=== PATIENT | female | born 1955 | race Caucasian/White ===

== ENCOUNTER 2020-03-01 08:35 | Inpatient (IN) | payer OTHER, MEDICAID ==
[~2020-03-01] VITALS: Ht 165.1 cm; Wt 56.4 kg
[2020-03-01] MEDS ORDERED: SODIUM CHLORIDE 0.9% 1,000 ML IV ONE (08:41)
[2020-03-01] MEDS ORDERED: SODIUM CHLORIDE 0.9% 1,000 ML IVB ONE (08:41)
[2020-03-01] MEDS ORDERED: dilTIAZem 25 MG/5 ML VIAL IV ONE ×2 (08:42→08:45)
[2020-03-01] MEDS ORDERED: ASPirin 81 mg TAB PO ONE (08:45)
[2020-03-01] MEDS ORDERED: LORazepam 2MG/ML-1ML VIAL IV ONE (08:45)
[2020-03-01 09:10] LABS: Basophils # (auto) 0 10 ^3/uL (0-0.2); Eosinophils # (auto) 0.2 10 ^3/uL (0-0.8); Lymphocytes # (auto) 2.8 10 ^3/uL (0.4-5.4); Mean Corpuscular Volume 100.2 fL (80.0-100.0); Monocytes # (auto) 0.8 10 ^3/uL (0-1.3)
[2020-03-01 09:12] LABS: Basophils % (auto) 0.5 % (0.0-2.0); Eosinophils % (auto) 2.5 % (0.0-7.0); Hematocrit 46.4 % (36.0-46.0); Lymphocytes % (auto) 33.2 % (10.0-50.0); Mean Corpuscular Hemoglobin 34.5 pg (28.0-32.0); Mean Corpuscular Hgb Conc. 34.4 g/dL (32.0-36.0); Neutrophils # (auto) 4.7 10 ^3/uL (1.6-8.6); Neutrophils % (auto) 54.8 % (37.0-80.0); Platelet Count (auto) 361 10^3/uL (140-450); Red Blood Cells 4.63 10^6/uL (4.0-5.20); Red Cell Distribution Width 12.7 % (11.8-14.3); White Blood Cell 8.5 10^3/uL (4.4-10.8)
[2020-03-01 09:15] LABS: INR 1.01 (0.9-1.15); Partial Thromboplastin Time 26.1 sec (23.64-32.05)
[2020-03-01 09:20] LABS: Albumin 3.5 g/dL (3.4-5.0); Anion Gap 7 (5-15); Blood Urea Nitrogen 12 mg/dL (7-18); Calcium 8.6 mg/dL (8.5-10.1); Carbon Dioxide 24 mmol/L (21-32); Chloride 112 mmol/L (98-107); Glucose 99 mg/dL (74-106); Potassium 3.5 mmol/L (3.5-5.1); Sodium 143 mmol/L (136-145)
[2020-03-01 09:26] LABS: Alanine Aminotransferase 31 U/L (13-56); Alkaline Phosphatase 61 U/L (45-117); Aspartate Aminotransferase 50 U/L (15-37); BUN/Creatinine Ratio 13.2; Bilirubin, Total 0.6 mg/dL (0.2-1.0); GFR African American 79 mL/min; GFR Non-African American 66 mL/min; Total Protein 6.8 g/dL (6.4-8.2)
[2020-03-01 10:55] LABS: Urine Bacteria NONE SEEN /hpf (None Seen); Urine Blood Negative /uL (Negative); Urine Hyaline Cast FEW /lpf (0 - 2); Urine Specific Gravity 1.005 (1.001-1.035); Urine WBC 1 /hpf (0 - 5)
[2020-03-01 11:05] LABS: Amphetamine Screen, Urine NEGATIVE (NEGATIVE); Barbiturate Scree,Urine NEGATIVE (NEGATIVE); Benzodiazephine Screen, Urine NEGATIVE (NEGATIVE); Cannabinoid Screen, Urine NEGATIVE (NEGATIVE); Cocaine Screen, Urine NEGATIVE (NEGATIVE); Opiate Scree,Urine NEGATIVE (NEGATIVE); Phencyclidine Screen, Urine NEGATIVE (NEGATIVE)
[2020-03-01] MEDS ORDERED: MORPHINE SULF INJ 2 MG/ML SYRINGE 1ML IV PRN (13:15)
[2020-03-01] MEDS ORDERED: NITROGLYCERIN 0.4 MG SL TAB SL PRN ×2 (13:15→15:45)
--- NOTE | 2020-03-01 14:30 | NUR ---
Telemetry admit from ER SIAVANDREWS admitted to Telemetry unit after SBAR received. Patient oriented to Sarah James, primary RN, unit, room, bed, and unit policies regarding patient care and visiting hours. Patient now on continuous telemetry monitoring, tele box # 55 and telemetry reading on arrival to unit is Sinus rhythm HR 79. Pt denies need for bedside oxygen, VSS. Patient weighed by bedscale and encouraged to call if they need something. All questions and concerns addressed, patient verbalized understanding. No s/s of distress or sob noted. Patient denies any cp. Call light within reach and patient instructed to call for assistance prn.
[2020-03-01] MEDS ORDERED: ACETAMINOPHEN 325 MG TAB PO PRN (15:45)
[2020-03-01] MEDS ORDERED: METOPROLOL TARTRATE 25 MG TAB PO ONE (15:45)
[2020-03-01] MEDS ORDERED: cloNIDine HCL 0.1 MG TAB PO PRN (15:45)
[2020-03-01] MEDS ORDERED: ALPRAZolam 0.25 MG TAB PO PRN (15:45)
[2020-03-01] MEDS ORDERED: ONDANSETRON HCL 4 MG/2 ML VIAL IV PRN (15:45)
[2020-03-01] MEDS ORDERED: SIMV-13 PO (15:57)
[2020-03-01] MEDS ORDERED: LEVO100T8 PO (15:57)
[2020-03-01] MEDS ORDERED: FENO160T8 PO (15:57)
[2020-03-01 17:12] VITALS: BP 140/68
--- NOTE | 2020-03-01 17:21 | NUR ---
Cardio at bedside MD Roca at bedside, aware of patient's status. MD requesting EKG of patient when in SVT, per [facility] nurse he states they did not get one only a rhythm strip when he was in the 200's for a few secs but no strip in chart. New orders received for metoprolol and cont care. Awaiting echo at this time. Will continue care
--- NOTE | 2020-03-01 19:10 | NUR ---
Patient care endorsed endorsed care to Dimitris le. Patient laying comfortably in bed no acute distress or sob. Denies CP pain. Call light within reach.
--- NOTE | 2020-03-01 19:15 | NUR ---
opening note pt A&Ox4. respirations even and nonlabored on room air. pt is ambulatory w/o assistance. bed in low locked position, call light within reach.
--- NOTE | 2020-03-01 19:59 | NUR ---
pain pt c/o of a headache, rating of a 3/10. pt will be medicated appropriately.
[2020-03-01 20:00] VITALS: BP 145/71
[2020-03-01 22:00] VITALS: BP 145/71
[2020-03-01] MEDS ORDERED: METOPROLOL TARTRATE 25 MG TAB PO SCH (22:00)
[2020-03-01] MEDS: METOPROLOL TARTRATE 25 MG TAB PO SCH (22:02)
--- NOTE | 2020-03-01 23:50 | NUR ---
pt resting in left lateral position with eyes closed. no s/s of pain or discomfort at this time. respirations are even and nonlabored on room air. will continue to monitor.
--- NOTE | 2020-03-02 01:50 | NUR ---
rounds pt resting in left lateral position. no s/s of pain or discomfort. respirations even nonlabored on room air. will continue to monitor.
[2020-03-02 05:00] VITALS: BP 142/70
[2020-03-02 06:02] LABS: BUN/Creatinine Ratio 22.1; Magnesium 1.9 mg/dL (1.6-2.6); Potassium 3.8 mmol/L (3.5-5.1)
--- NOTE | 2020-03-02 07:25 | NUR ---
closing note pt resting in right lateral position. respirations are even and nonlabored on room air. no s/s of pain or discomfort. bed in low locked position, call light within reach.
[2020-03-02 08:00] VITALS: BP 158/79
[2020-03-02] MEDS: METOPROLOL TARTRATE 25 MG TAB PO SCH (09:34)
[2020-03-02] MEDS ORDERED: ASPirin 81 mg TAB PO SCH (10:00)
--- NOTE | 2020-03-02 10:35 | NUR ---
DR CARPIO ON UNIT
[2020-03-02 11:10] VITALS: BP_SYST 137; BP_SYST 146; BP_DIAS 74; BP_DIAS 88
[2020-03-02 12:00] VITALS: BP 137/88
--- NOTE | 2020-03-02 13:25 | NUR ---
Discharge instructions given as ordered. Encourage to follow up with PMD as instructed, tomorrow, March 03 @ 11:15 (tele appt) Also provided patient will phone number and address to schedule follow up appt for cardiology in 2-4 weeks. All questions and concerns addressed. Patient verbalized understanding. Medication reconciliation form completed and copy given to patient. No home medications held in Pharmacy, and no needed vaccines given, as patient declined. Both IVs removed with catheter intact and pressure dressing applied. Telemetry unit returned to ICU. Patient taken to vehicle via wheelchair with all personal belongings, accompanied by staff member. No distress noted at time of departure.
== END 2020-03-02 13:25 | disposition home or self-care (01) | DRG 310 ==
LOC: EDBD 08:35 → ER 08:35 → TELE 08:36 → TELE-WESTW 14:29
PROVIDERS: ADMIT Internal Medicine Geriatric Medicine; ATTEND Internal Medicine Geriatric Medicine
DX: I47.1 Supraventricular tachycardia (principal); E03.9 Hypothyroidism, unspecified; D75.89 Other specified diseases of blood and blood-forming organs; E78.5 Hyperlipidemia, unspecified; F17.210 Nicotine dependence, cigarettes, uncomplicated; I10 Essential (primary) hypertension; Z79.899 Other long term (current) drug therapy; Z90.710 Acquired absence of both cervix and uterus
CPT/HCPCS: 36415; 71046; 80048; 80053; 80307; 81001; 83735; 84443; 84484; 85025; 85379; 85610; 85730; 93306; G0378

== ENCOUNTER 2020-03-29 12:15 | Emergency (ER) | payer OTHER, MEDICAID ==
[~2020-03-29] VITALS: Ht 167.6 cm; Wt 68.0 kg
[~2020-03-29 12:15] MED LIST: FENO160T8 PO; LEVO100T8 PO; SIMV-13 PO
[2020-03-29 12:59] LABS: Basophils # (auto) 0.1 10 ^3/uL (0-0.2); Basophils % (auto) 0.8 % (0.0-2.0); Eosinophils # (auto) 0.2 10 ^3/uL (0-0.8); Hemoglobin 15.6 g/dL (12.2-16.2); Lymphocytes # (auto) 1.7 10 ^3/uL (0.4-5.4); Mean Corpuscular Hgb Conc. 34.6 g/dL (32.0-36.0); Monocytes # (auto) 0.6 10 ^3/uL (0-1.3); Red Blood Cells 4.57 10^6/uL (4.0-5.20)
[2020-03-29 13:01] LABS: Eosinophils % (auto) 2.7 % (0.0-7.0); Hematocrit 45.2 % (36.0-46.0); Mean Corpuscular Hemoglobin 34.2 pg (28.0-32.0); Mean Corpuscular Volume 98.9 fL (80.0-100.0); Monocytes % (auto) 7.7 % (0.0-12.0); Neutrophils # (auto) 5.5 10 ^3/uL (1.6-8.6); Neutrophils % (auto) 67.8 % (37.0-80.0); Nucleated Red Blood Cells % 0.1 %; Platelet Count (auto) 306 10^3/uL (140-450); White Blood Cell 8.2 10^3/uL (4.4-10.8)
[2020-03-29 13:12] LABS: Albumin 3.8 g/dL (3.4-5.0); Anion Gap 6 (5-15); Blood Urea Nitrogen 16 mg/dL (7-18); Calcium 8.7 mg/dL (8.5-10.1); Carbon Dioxide 25 mmol/L (21-32); Chloride 108 mmol/L (98-107); Glucose 83 mg/dL (74-106); Sodium 139 mmol/L (136-145)
[2020-03-29] MEDS ORDERED: ASPirin 81 mg TAB PO ONE (13:15)
[2020-03-29 13:18] LABS: Alanine Aminotransferase 25 U/L (13-56); Alkaline Phosphatase 62 U/L (45-117); Aspartate Aminotransferase 26 U/L (15-37); Bilirubin, Total 0.5 mg/dL (0.2-1.0); GFR African American 92 mL/min; GFR Non-African American 76 mL/min; Total Protein 7.1 g/dL (6.4-8.2)
[2020-03-29 14:01] LABS: INR 0.99 (0.9-1.15); Partial Thromboplastin Time 26.1 sec (23.64-32.05)
[2020-03-29] MEDS ORDERED: IOHEXOL 350 MG/ML 100ML IJ ONE (14:25)
[2020-03-29 14:42] LABS: Urine Bacteria FEW /hpf (None Seen); Urine Blood Negative /uL (Negative); Urine Specific Gravity 1.004 (1.001-1.035); Urine WBC 2 /hpf (0 - 5)
[2020-03-29 16:15] VITALS: BP 131/62
== END 2020-03-29 16:34 | disposition home or self-care (01) ==
LOC: EDSEX 12:15 → EDBD 12:15 → ER 12:15
DX: J43.9 Emphysema, unspecified (principal); F17.210 Nicotine dependence, cigarettes, uncomplicated; E78.5 Hyperlipidemia, unspecified; I10 Essential (primary) hypertension; Z90.710 Acquired absence of both cervix and uterus
CPT/HCPCS: 36415; 71045; 71275; 80053; 81001; 83735; 83880; 84443; 84484; 85025; 85379; 85610; 85730; 93005; 99285; Q9967

== ENCOUNTER 2022-11-22 15:54 | Emergency (ER) | payer MEDICAID, OTHER ==
[~2022-11-22] VITALS: Ht 165.1 cm; Wt 55.0 kg
[2022-11-22 16:51] LABS: Basophils # (auto) 0 10 ^3/uL (0-0.2); Basophils % (auto) 0.6 % (0.0-2.0); Eosinophils # (auto) 0.1 10 ^3/uL (0-0.8); Eosinophils % (auto) 0.8 % (0.0-7.0); Hematocrit 41.1 % (36.0-46.0); Hemoglobin 13.9 g/dL (12.2-16.2); Lymphocytes # (auto) 1.6 10 ^3/uL (0.4-5.4); Lymphocytes % (auto) 23.2 % (10.0-50.0); Mean Corpuscular Hemoglobin 34.1 pg (28.0-32.0); Mean Corpuscular Hgb Conc. 33.8 g/dL (32.0-36.0); Mean Corpuscular Volume 101.2 fL (80.0-100.0); Monocytes # (auto) 0.6 10 ^3/uL (0-1.3); Monocytes % (auto) 8.5 % (0.0-12.0); Neutrophils # (auto) 4.7 10 ^3/uL (1.6-8.6); Neutrophils % (auto) 66.9 % (37.0-80.0); Red Blood Cells 4.06 10^6/uL (4.0-5.20); Red Cell Distribution Width 12.5 % (11.8-14.3); White Blood Cell 7.1 10^3/uL (4.4-10.8)
[2022-11-22 16:57] LABS: Urine Bacteria MANY /hpf (None Seen); Urine Blood Negative /uL (Negative); Urine Hyaline Cast FEW /lpf (0 - 2); Urine Specific Gravity 1.009 (1.001-1.035); Urine WBC 11 /hpf (0 - 5)
[2022-11-22 17:05] LABS: Albumin 3.5 g/dL (3.4-5.0); Calcium 9.3 mg/dL (8.5-10.1); Potassium 3.9 mmol/L (3.5-5.1)
[2022-11-22 17:08] LABS: BUN/Creatinine Ratio 15.1
[2022-11-22 17:11] LABS: Bilirubin, Total 0.5 mg/dL (0.2-1.0); Total Protein 6.2 g/dL (6.4-8.2)
[2022-11-22] MEDS ORDERED: LACTATED RINGER'S 2,000 ML IV ONE (19:15)
[2022-11-22] MEDS ORDERED: HYDROcodone-ACET 5/325MG TAB PO ONE (19:15)
[2022-11-22] MEDS ORDERED: TAMSULOSIN HYDROCHLORIDE 0.4 MG CAP PO ONE (19:15)
[2022-11-22] MEDS ORDERED: MAGNESIUM SULFATE 1GM/100ML 100 ML IV ONE (19:15)
[2022-11-22] MEDS ORDERED: CEPH-510 PO (20:47)
[2022-11-22 21:10] VITALS: BP 124/86
[2022-11-22] MEDS ORDERED: CEFP200T15 PO (21:10)
== END 2022-11-22 20:48 | disposition home or self-care (01) ==
LOC: ER 15:54
DX: N12 Tubulo-interstitial nephritis, not specified as acute or chronic (principal); N23 Unspecified renal colic; E78.5 Hyperlipidemia, unspecified; I10 Essential (primary) hypertension; Z90.710 Acquired absence of both cervix and uterus
CPT/HCPCS: 36415; 74176; 76705; 80053; 81001; 84484; 85025; 93005; 96360

== ENCOUNTER 2023-02-28 17:34 | Emergency (ER) | payer OTHER, BC ==
[~2023-02-28] VITALS: Ht 167.6 cm; Wt 59.0 kg
[~2023-02-28 17:34] MED LIST changes: +CEFP200T15 PO
[2023-02-28] MEDS ORDERED: ACETAMINOPHEN 325 MG TAB PO ONE (19:45)
[2023-02-28 22:24] VITALS: BP 154/79
== END 2023-02-28 22:25 | disposition home or self-care (01) ==
LOC: ER 17:34 → EDBD 17:34 → ER 22:25
DX: S20.214A Contusion of middle front wall of thorax, initial encounter (principal); F10.129 Alcohol abuse with intoxication, unspecified; J44.9 Chronic obstructive pulmonary disease, unspecified; E78.5 Hyperlipidemia, unspecified; I10 Essential (primary) hypertension; F17.210 Nicotine dependence, cigarettes, uncomplicated; Z79.899 Other long term (current) drug therapy; Z90.710 Acquired absence of both cervix and uterus; V89.2XXA Person injured in unspecified motor-vehicle accident, traffic, initial encounter; Y93.89 Activity, other specified; Y92.89 Other specified places as the place of occurrence of the external cause; Y99.8 Other external cause status
CPT/HCPCS: 71045; 93005

== ENCOUNTER 2023-06-13 14:16 | Emergency (ER) | payer OTHER, MEDICAID ==
[~2023-06-13] VITALS: Ht 165.1 cm; Wt 56.8 kg
[~2023-06-13 14:16] MED LIST changes: +FENO160T PO; -FENO160T8 PO; -SIMV-13 PO; +SIMV40TA18 PO
[2023-06-13] MEDS ORDERED: MUPI2OIN2 EX (19:42)
[2023-06-13] MEDS ORDERED: AUG875T PO (19:42)
[2023-06-13] MEDS ORDERED: AMPICILLIN & SULBACTAM SODIUM 3 GM in SODIUM CHL 0.9% 100 ML IV ONE (19:45)
[2023-06-13] MEDS ORDERED: NEOMYCIN-BACITRACIN-POLYM UNITDOSE PKG TOP OINT TOP ONE (19:45)
[2023-06-13] MEDS ORDERED: TETANUS-DIPTH-ACEL PERTUSSIS 0.5ML SYR Tdap IM ONE (19:45)
[2023-06-13] MEDS ORDERED: cefTRIAXone SOD 1,000 MG VL IM ONE (22:45)
[2023-06-13] MEDS ORDERED: cefTRIAXone 1GM/50ML D5W 50 ML IV ONE (23:00)
[2023-06-13 23:25] VITALS: BP 201/95; TEMP 98.2
[2023-06-13] MEDS ORDERED: cloNIDine HCL 0.1 MG TAB PO ONE (23:45)
[2023-06-14 03:24] VITALS: PULSE 99; RESP 16; O2SAT 97
== END 2023-06-14 00:39 | disposition home or self-care (01) ==
LOC: ER 14:16
DX: T25.222A Burn of second degree of left foot, initial encounter (principal); L08.9 Local infection of the skin and subcutaneous tissue, unspecified; J44.9 Chronic obstructive pulmonary disease, unspecified; K80.20 Calculus of gallbladder without cholecystitis without obstruction; E78.5 Hyperlipidemia, unspecified; I10 Essential (primary) hypertension; F17.210 Nicotine dependence, cigarettes, uncomplicated; Z90.710 Acquired absence of both cervix and uterus; Z79.899 Other long term (current) drug therapy; X08.8XXA Exposure to other specified smoke, fire and flames, initial encounter; Y93.89 Activity, other specified; Y92.89 Other specified places as the place of occurrence of the external cause; Y99.8 Other external cause status
CPT/HCPCS: 16020; 90471; 90715; 96365; 99284; J0696

== ENCOUNTER → 2023-07-05 | Outpatient (CLI) | payer OTHER, MEDICAID ==
[~2023-07-05] VITALS: Ht 165.1 cm; Wt 56.7 kg
[~2023-07-05] MED LIST changes: +ADENOSINE 48 MG in GIVE UN-DILUTED 0 ML IV ONE; +AUG875T PO; +MUPI2OIN2 EX
== END | disposition home or self-care (01) ==
LOC: XYW 08:10
PROVIDERS: ATTEND Internal Medicine
DX: Z01.810 Encounter for preprocedural cardiovascular examination (principal); I51.89 Other ill-defined heart diseases; R07.9 Chest pain, unspecified; I47.1 Supraventricular tachycardia; I70.0 Atherosclerosis of aorta; I10 Essential (primary) hypertension; K82.9 Disease of gallbladder, unspecified; J44.9 Chronic obstructive pulmonary disease, unspecified
CPT/HCPCS: 78452; 93017; A9500; J0153

== ENCOUNTER → 2024-12-23 | Outpatient (CLI) | payer OTHER, MEDICAID ==
[~2024-12-23] MED LIST changes: -ADENOSINE 48 MG in GIVE UN-DILUTED 0 ML IV ONE
[2024-12-23 07:44] LABS: Basophils # (auto) 0 10 ^3/uL (0-0.2); Basophils % (auto) 0.6 % (0.0-2.0); Eosinophils # (auto) 0.3 10 ^3/uL (0-0.8); Eosinophils % (auto) 3.4 % (0.0-7.0); Hematocrit 45.9 % (36.0-46.0); Hemoglobin 15.5 g/dL (12.2-16.2); Lymphocytes # (auto) 1.7 10 ^3/uL (0.4-5.4); Lymphocytes % (auto) 21.9 % (10.0-50.0); Mean Corpuscular Hemoglobin 32.7 pg (28.0-32.0); Mean Corpuscular Hgb Conc. 33.9 g/dL (32.0-36.0); Mean Corpuscular Volume 96.4 fL (80.0-100.0); Monocytes # (auto) 0.5 10 ^3/uL (0-1.3); Neutrophils # (auto) 5.2 10 ^3/uL (1.6-8.6); Neutrophils % (auto) 67.1 % (37.0-80.0); Nucleated Red Blood Cells % 0.2 %; Platelet Count (auto) 321 10^3/uL (140-450); Red Blood Cells 4.76 10^6/uL (4.0-5.20); Red Cell Distribution Width 13.5 % (11.8-14.3); White Blood Cell 7.8 10^3/uL (4.4-10.8)
[2024-12-23 08:11] LABS: Alanine Aminotransferase 20 U/L (7-40); Albumin 4.7 g/dL (3.2-4.8); Alkaline Phosphatase 73 U/L (46-116); Anion Gap 8 (5-15); Aspartate Aminotransferase 21 U/L (13-40); BUN/Creatinine Ratio 16.3 (10.0-20.0); Blood Urea Nitrogen 16 mg/dL (9-23); Carbon Dioxide 29 mmol/L (20-31); Chloride 105 mmol/L (98-107); Potassium 4.3 mmol/L (3.5-5.1); Sodium 142 mmol/L (136-145); Triglycerides 126 mg/dL (< 150)
[2024-12-23 08:12] LABS: Bilirubin, Total 0.6 mg/dL (0.2-1.0); Total Protein 6.7 g/dL (5.7-8.2)
[2024-12-23 08:17] LABS: Glucose 97 mg/dL (74-106)
[2024-12-23 08:23] LABS: Calcium 10.7 mg/dL (8.7-10.4); Cholesterol 261 mg/dL (< 200); HDL Cholesterol 63 mg/dL (40-59); LDL Cholesterol 193 mg/dL (< 100)
[2024-12-23 11:33] LABS: Folate (Folic Acid) 35.23 ng/mL (>5.38)
[2024-12-24 09:07] LABS: Thyroxine (T4) 8.8 ug/dL (4.5-12.0)
== END | disposition home or self-care (01) ==
LOC: LAB 06:54
PROVIDERS: ATTEND Internal Medicine
DX: I11.0 Hypertensive heart disease with heart failure (principal); I50.9 Heart failure, unspecified; J44.9 Chronic obstructive pulmonary disease, unspecified; E78.1 Pure hyperglyceridemia; E03.9 Hypothyroidism, unspecified; K80.62 Calculus of gallbladder and bile duct with acute cholecystitis without obstruction; F10.20 Alcohol dependence, uncomplicated; Y90.9 Presence of alcohol in blood, level not specified
CPT/HCPCS: 36415; 80053; 80061; 82306; 82607; 82746; 84443; 85025

== ENCOUNTER 2025-03-01 04:59 | Emergency (ER) | payer OTHER, MEDICAID ==
[~2025-03-01] VITALS: Ht 165.1 cm; Wt 54.2 kg
--- NOTE | 2025-03-01 05:16 | ED.PDOC ---
GI ASSESSMENT HPI Comments Pt presents to the ER with C/O right sided flank pain. Pt states she has been having lower abd pain, intermittent dizziness, urinary rention, and nausea. Pt denies taking any medications for symptoms or hematuria. Denies chest pain, shortness breath or difficulty breathing. Time Seen by MD: 05:00 Primary Care Provider: UNKNOWN Reviewed Notes: Nurses Notes, Medications, Allergies Allergies: Coded Allergies: NO KNOWN ALLERGIES (Unverified , 03/01/20) Home Meds Active Scripts Hydrocodone-Acetaminophen (Hydrocodone Bitartrate/AC 5-325 mg) 1 Tab Tab, 1 TAB PO Q8HP PRN for 2 Days, #6 TAB Prov:BEATRIZ EDMONDSON MD 03/01/25 Cephalexin Monohydrate (Cephalexin) 500 Mg Cap, 500 MG PO Q6HR for 7 Days, #28 CAP Prov:BEATRIZ EDMONDSON MD 03/01/25 Mupirocin (Pseudomonas Fluores (Mupirocin) 2 % Oin, 1 APPLIC EX TID for 10 Days, #15 ML Prov:NAUHN BAIN Q [employer]IAL [employer] J[employer] TITLES 06/13/23 Amoxicillin & Pot Clavulanate (AUGMENTIN TABLET) 875 Mg Tb, 1 TAB PO BID for 10 Days, #20 TAB Prov:BAINLORENAALDA Q [employer]IAL [employer] J[employer] TITLES 06/13/23 Cefpodoxime Proxetil (Cefpodoxime Proxetil) 200 Mg Tab, 200 MG PO BID for 10 Days, #20 TAB Prov:RIRI KRAFT MD 11/22/22 Reported Medications Fenofibrate (Fenofibrate) 160 Mg Tab, 1 TAB PO DAILY, #30 TAB 5 Refills 03/01/20 Simvastatin (Simvastatin) 40 Mg Tab, 40 MG PO DAILY for 30 Days 03/01/20 Levothyroxine Sodium (Levothyroxine Sodium) 100 Mcg Tab, 100 MCG PO QAM for 30 Days, MCG 03/01/20 Information Source: Patient Past Medical History PAST MEDICAL HISTORY: COPD, Gallstones, High Lipids, HTN, Thyroid Surgical History: Hysterectomy 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 AIR BATTLE MANAGER History Family History Family History: Family hx of Cancer, Family hx of heart varsha Social History Smoker: Cigarettes, Less Than 1 Pack/Day Alcohol: Occasionally Drugs: Denies Drug Use Lives In: Home Constitutional: reports: weakness; denies: chills, diaphoresis, fatigue, fever, malaise, sweats, others EENTM: denies: blurred vision, double vision, ear bleeding, ear discharge, ear drainage, ear pain, ear ringing, eye pain, eye redness, hearing loss, mouth pain, mouth swelling, nasal discharge, nose bleeding, nose congestion, nose pain, photophobia, tearing, throat pain, throat swelling, voice changes, others Respiratory: denies: cough, hemoptysis, orthopnea, SOB at rest, shortness of breath, SOB with excertion, stridor, wheezing, others Cardiovascular: reports: dizzy spells; denies: chest pain, diaphoresis, Dyspnea on exertion, edema, irregular heart beat, left arm pain, lightheadedness, palpitations, PND, syncope, others Gastrointestinal: reports: abdominal pain, nausea, vomiting; denies: abdomen distended, blood streaked bowels, constipated, diarrhea, dysphagia, difficulty swallowing, hematemesis, melena, poor appetite, poor fluid intake, rectal bleeding, rectal pain, others Genitourinary: denies: abnormal vagina bleeding, burning, dyspareunia, dysuria, flank pain, frequency, hematuria, incontinence, pain, , vagina discharge , urgency, others Neurological: denies: dizziness, fainting, headache, left sided numbness, left sided weakness, numbness, paresthesia, pre-existing deficit, right sided numbness, right sided weakness, seizure, speech problems, tingling, tremors, weakness, others Musculoskeletal: denies: back pain, gout, joint pain, joint swelling, muscle pain, muscle stiffness, neck pain, others Integumetry: denies: bruises, change in color, change in hair/nails, dryness, laceration, lesions, lumps, rash, wounds, others Allergic/Immunocompromised: denies: Difficulty Healing, Frequent Infections, Hives, Itching, others Hematologic/Lymphatic: denies: anemia, blood clots, easy bleeding, easy bruising, swollen glands, others Endocrine: denies: excessive hunger, excessive sweating, excessive thirst, excessive urination, flushing, intolerance to cold, intolerance to heat, unexplained weight gain, unexplained weight loss, others Psychiatric: denies: anxiety, bipolar disorder, depression, hopeless, panic di sorder, schizophrenia, sleepless, suicidal, others Physical Exam General Appearance: No Apparent Distress, Normal HEENT: Pharynx Normal Neck: Full Range of Motion, Non-Tender Respiratory: Lungs Clear, No Respiratory Distress, Normal Breath Sounds Cardiovascular: No Edema, No JVD, No Murmur, No Gallop, Normal Peripheral Pulses, Regular Rate/Rhythm Breast Exam: Deferred Gastrointestinal: No Organomegaly, No Pulsatile Mass, Normal Bowel Sounds, RUQ (tenderness on palpation ), Soft Genitalia: Deferred Pelvic: Deferred Rectal: Deferred Extremities: Normal capillary refill, Normal inspection, Normal range of motion, Non-tender, No pedal edema Musculoskeletal : Apperance: Normal Neurologic: Alert, fruit dryer II-XII nml as Tested, No Motor Deficits, Normal Affect, Normal Mood, No Sensory Deficits Cerebellar Function: Normal Reflexes: Normal Skin: Dry, Normal Color, Warm Lymphatic: No Adenopathy Was a procedure done? Was a procedure done?: No GI differential Dx Differential Diagnosis: Bowel Obstruction, Cholangitis, Cholecystitis, Constipation, Pancreatitis, UTI X-Ray, Labs, Meds, VS Vital Signs Date Time Temp Pulse Resp B/P (MAP) Pulse Ox O2 Delivery O2 Flow Rate FiO2 03/01/25 09:15 97.9 57 17 146/63 (90) 97 97.9 03/01/25 07:59 47 16 148/66 03/01/25 07:22 60 19 191/83 03/01/25 07:17 60 17 98 Room Air 03/01/25 07:14 98.0 63 20 191/83 (119) 98 98.0 03/01/25 06:19 97.5 46 18 160/51 (87) 99 97.5 03/01/25 06:09 45 03/01/25 05:30 Room Air* 0 21 03/01/25 05:24 45 03/01/25 05:15 97.7 47 18 150/68 (95) 98 97.7 Lab Test 03/01/25 07:07 03/01/25 06:05 03/01/25 05:15 Range/Units Troponin I High Sensitivity 5 3 L </=34 ng/L White Blood Count 7.3 4.4-10.8 10^3/uL Red Blood Count 4.12 4.0-5.20 10^6/uL Hemoglobin 13.8 12.2-16.2 g/dL Hematocrit 40.4 36.0-46.0 % Mean Corpuscular Volume 98.2 80.0-100.0 fL Mean Corpuscular Hemoglobin 33.5 H 28.0-32.0 pg Mean Corpuscular Hemoglobin Concent 34.1 32.0-36.0 g/dL Red Cell Distribution Width 13.3 11.8-14.3 % Platelet Count 276 140-450 10^3/uL Mean Platelet Volume 8.4 6.9-10.8 fL Neutrophils (%) (Auto) 73.3 37.0-80.0 % Lymphocytes (%) (Auto) 18.1 10.0-50.0 % Monocytes (%) (Auto) 5.4 0.0-12.0 % Eosinophils (%) (Auto) 2.7 0.0-7.0 % Basophils (%) (Auto) 0.5 0.0-2.0 % Neutrophils # (Auto) 5.3 1.6-8.6 10 ^3/uL Lymphocytes # (Auto) 1.3 0.4-5.4 10 ^3/uL Monocytes # (Auto) 0.4 0-1.3 10 ^3/uL Eosinophils # (Auto) 0.2 0-0.8 10 ^3/uL Basophils # (Auto) 0 0-0.2 10 ^3/uL Nucleated Red Blood Cells 0.0 % Sodium Level 142 136-145 mmol/L Potassium Level 3.8 3.5-5.1 mmol/L Chloride Level 112 H 98-107 mmol/L Carbon Dioxide Level 25 20-31 mmol/L Anion Gap 5 5-15 Blood Urea Nitrogen 26 H 9-23 mg/dL Creatinine 1.13 H 0.550-1.02 mg/dL Glomerular Filtration Rate Calc 52 >90 mL/min BUN/Creatinine Ratio 23.0 H 10.0-20.0 Serum Glucose 133 H 74-106 mg/dL Calcium Level 9.8 8.7-10.4 mg/dL Total Bilirubin 0.5 0.2-1.0 mg/dL Aspartate Amino Transferase (AST) 16 13-40 U/L Alanine Aminotransferase (ALT) 9 7-40 U/L Alkaline Phosphatase 50 46-116 U/L Total Protein 6.2 5.7-8.2 g/dL Albumin 4.2 3.2-4.8 g/dL Lipase 68 H 12-53 U/L Urine Color Yellow Yellow Urine Clarity Turbid H Clear Urine pH 5.5 5.0-9.0 Urine Specific [place] 1.029 1.001-1.035 Urine Protein Trace H Negative Urine Ketones Negative Negative Urine Blood Trace H Negative /uL Urine Nitrite Negative Negative Urine Bilirubin Negative Negative Urine Urobilinogen 3 H Negative mg/dL Urine Leukocyte Esterase 3+ Negative /uL Urine RBC 21 0 - 4 /hpf Urine Microscopic WBC 59 H 0-5 /HPF Urine Squamous Epithelial Cells Mod <5 /hpf Urine Bacteria Few H None Seen /hpf Urine Hyaline Casts Few 0 - 2 /lpf Urine Mucus Few None Seen Urine Glucose Normal Normal mg/dL Current Medications Medications (Trade) Dose Ordered Sig/Ledy Route Start Time Stop Time Status Last Admin Sodium Chloride 1,000 ml @ 1,000 mls/hr Q1H ONCE IV 03/01/25 05:45 03/01/25 06:44 DC 03/01/25 05:57 Sodium Chloride 1,000 ml @ 1,000 mls/hr Q1H ONCE IV 03/01/25 07:15 03/01/25 08:14 DC 03/01/25 07:20 Morphine Sulfate 4 mg ONCE ONCE IV 03/01/25 07:15 03/01/25 07:16 DC 03/01/25 07:22 Ondansetron HCl (Zofran) 4 mg ONCE ONCE IV 03/01/25 07:15 03/01/25 07:16 DC 03/01/25 07:20 Ceftriaxone Sodium 50 ml @ 100 mls/hr ONCE ONCE IV 03/01/25 08:15 03/01/25 08:44 DC 03/01/25 08:30 X-Ray, Labs, Meds, VS Comment Patient care report handed over to Dr. Edmondson. Patient still pending labs and CT abdomen. Patient stable alert and oriented x4. Time of 1ST Reevaluation: 05:14 Reevaluation 1ST: Unchanged Time of 2ND Reevaluation: 09:03 Reevaluation 2ND: Resolved Patient Education/Counseling: Diagnosis, Treatment, Prognosis, Need For Follow Up Family Education/Counseling: No Family Present Departure 1 Departure Time of Disposition: 09:03 Impression: Primary Impression: Cholelithiases Qualified Codes: K80.20 - Calculus of gallbladder without cholecystitis without obstruction Additional Impression: UTI (urinary tract infection) Qualified Codes: N30.00 - Acute cystitis without hematuria Disposition: HOME / SELF CARE / HOMELESS Condition: Good e-Prescriptions Hydrocodone-Acetaminophen (Hydrocodone Bitartrate/AC 5-325 mg) 1 Tab Tab 1 TAB PO Q8HP PRN for 2 Days, #6 TAB Prov: BEATRIZ EDMONDSON MD 03/01/25 Cephalexin Monohydrate (Cephalexin) 500 Mg Cap 500 MG PO Q6HR for 7 Days, #28 CAP Prov: BEATRIZ EDMONDSON MD 03/01/25 Discharged With: Self Critical Care Note Critical Care Time?: No Stability Stability form required: BISI Arthur March 01, 2025 05:15 BEATRIZ EDMONDSON MD March 01, 2025 09:05
[2025-03-01] MEDS: SODIUM CHLORIDE 0.9% 1,000 ML IV ONE ×3 (05:30→07:20)
[2025-03-01 05:45] LABS: Urine Bacteria FEW /hpf (None Seen); Urine Blood TRACE /uL (Negative); Urine Clarity Turbid (Clear); Urine Color Yellow (Yellow); Urine Hyaline Cast FEW /lpf (0 - 2); Urine Mucus FEW (None Seen); Urine Protein, UAD TRACE (Negative); Urine Specific Gravity 1.029 (1.001-1.035); Urine Squamous Epithelial Cell MOD /hpf (<5); Urine Urobilinogen 3 mg/dL (Negative); Urine WBC 59 /HPF (0-5); Urine pH 5.5 (5.0-9.0)
[2025-03-01] MEDS: MORPHINE SULFATE INJ 2 MG/ml SYRG IV ONE ×2 (06:06→07:22)
--- NOTE | 2025-03-01 06:15 | DVH ---
CHEST RADIOGRAPH Indication: sob Technique: Frontal and lateral view of the chest was obtained Comparison: CHEST TWO VIEWS ROUTINE on DOS: 03/01/20 FINDINGS: Lines and Tubes: None Lungs: Clear Pleura: No effusion. No pneumothorax. Cardiomediastinal contours: Unremarkable Bones: Unremarkable IMPRESSION: No evidence of acute disease.
--- NOTE | 2025-03-01 06:19 | DVH ---
Exam: CT CT AB PEL WO CON-NO ORAL OR IV History: rug abd pain Comparison Study: CT ABD PELVIS WO CONTRAST on DOS: 11/22/22 Technique: Multidetector spiral CT of the abdomen was performed from lung bases to pubic symphysis. I maging was performed without IV contrast. Axial, coronal and sagittal multiplanar reformats were obta ined from the axial data set by the technologist. Radiation Dose : 1. Abdomen/Pelvis: CTDIvol 6 mGy, DLP 150 mGy*cm. Findings: Evaluation of solid organs is limited due to lack of intravenous contrast use. Lung Bases: Cardiomegaly. Coronary artery calcifications. Vascular calcifications of the aorta. Liver: The liver is normal in size. No focal lesions. Gallbladder and Biliary Tree: Cholelithiasis noted without secondary findings of cholecystitis or chu iary obstruction. Spleen: Unremarkable Pancreas: The pancreas is grossly normal in appearance. Adrenal Glands: Unremarkable Kidneys: Kidneys are grossly normal without calculi or hydronephrosis. Bladder: Grossly unremarkable for degree of distention. Bowel: The stomach is grossly normal in appearance. Moderate volume colonic stool. Mild diffuse colo richie bowel wall thickening. The appendix is not visualized; however, no secondary findings of acute ap pendicitis identified. Ascites: Absent Lymphadenopathy: No mesenteric, retroperitoneal or periportal lymphadenopathy. Abdominal Wall and Mesentery: Unremarkable. Vasculature: The visualized abdominal aorta is normal in size and caliber. There is extensive athero sclerotic calcification of the aorta and its branches. Evaluation of abdominal and pelvic vessels is limited due to lack of intravenous contrast. Pelvic Organs: The uterus is surgically absent. Musculoskeletal: No aggressive focal bony lesions, acute fractures or dislocation. IMPRESSION: Cholelithiasis. Moderate volume colonic stool. Mild colonic bowel wall thickening; possibly colitis. Radiation optimization: All CT scans at this facility use at least one of these dose optimization patricia hniques: automated exposure control mA and/or kV adjustment per patient size (includes targeted exam s where dose is matched to clinical indication) or iterative reconstruction.
[2025-03-01 06:21] LABS: Basophils # (auto) 0 10 ^3/uL (0-0.2); Basophils % (auto) 0.5 % (0.0-2.0); Eosinophils # (auto) 0.2 10 ^3/uL (0-0.8); Eosinophils % (auto) 2.7 % (0.0-7.0); Hematocrit 40.4 % (36.0-46.0); Hemoglobin 13.8 g/dL (12.2-16.2); Lymphocytes # (auto) 1.3 10 ^3/uL (0.4-5.4); Lymphocytes % (auto) 18.1 % (10.0-50.0); Mean Corpuscular Hemoglobin 33.5 pg (28.0-32.0); Mean Corpuscular Hgb Conc. 34.1 g/dL (32.0-36.0); Mean Corpuscular Volume 98.2 fL (80.0-100.0); Monocytes # (auto) 0.4 10 ^3/uL (0-1.3); Monocytes % (auto) 5.4 % (0.0-12.0); Neutrophils # (auto) 5.3 10 ^3/uL (1.6-8.6); Neutrophils % (auto) 73.3 % (37.0-80.0); Platelet Count (auto) 276 10^3/uL (140-450); Red Blood Cells 4.12 10^6/uL (4.0-5.20); Red Cell Distribution Width 13.3 % (11.8-14.3); White Blood Cell 7.3 10^3/uL (4.4-10.8)
[2025-03-01 06:36] LABS: Albumin 4.2 g/dL (3.2-4.8); Alkaline Phosphatase 50 U/L (46-116); Anion Gap 5 (5-15); Aspartate Aminotransferase 16 U/L (13-40); Calcium 9.8 mg/dL (8.7-10.4); Carbon Dioxide 25 mmol/L (20-31); Potassium 3.8 mmol/L (3.5-5.1); Sodium 142 mmol/L (136-145); Total Protein 6.2 g/dL (5.7-8.2)
[2025-03-01 06:37] LABS: Bilirubin, Total 0.5 mg/dL (0.2-1.0)
[2025-03-01 06:38] LABS: Alanine Aminotransferase 9 U/L (7-40); Blood Urea Nitrogen 26 mg/dL (9-23); Chloride 112 mmol/L (98-107); Glucose 133 mg/dL (74-106); Lipase 68 U/L (12-53)
[2025-03-01] MEDS: ONDANSETRON HCL 4 MG/2 ML VIAL IV ONE ×2 (06:39→07:20)
--- NOTE | 2025-03-01 08:04 | ECG ---
[facility] Test Date: 2025-03-01 Test Time: 05:24:40 Pat Name: ANDREWS PANIAGUA Department: ED Room: Gender: F Agriculture Mechanic: SUNITA : 1955 Requested By: BISI WALKER Order Number: [id number] Reading MD: Measurements Intervals [place] Rate: 45 P: 46 OK: 152 QRS: -5 QRSD: 151 T: 11 QT: 504 QTc: 437 Interpretive Statements Sinus bradycardia Right bundle branch block Please click the below link to view image of tracing.
--- NOTE | 2025-03-01 08:10 | ECG ---
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
[2025-03-01] MEDS: cefTRIAXone 1GM/50ML D5W 50 ML IV ONE (08:30)
[2025-03-01] MEDS ORDERED: CEPH500C PO (09:04)
[2025-03-01] MEDS ORDERED: HYDR-4902 PO (09:04)
[2025-03-01 09:15] VITALS: BP 146/63; PULSE 57; RESP 17; TEMP 97.9; O2SAT 97
== END 2025-03-01 09:17 | disposition home or self-care (01) ==
LOC: ER 04:59
DX: K80.20 Calculus of gallbladder without cholecystitis without obstruction (principal); N39.0 Urinary tract infection, site not specified; F17.210 Nicotine dependence, cigarettes, uncomplicated; J44.9 Chronic obstructive pulmonary disease, unspecified; E78.5 Hyperlipidemia, unspecified; I10 Essential (primary) hypertension; Z90.710 Acquired absence of both cervix and uterus; Z79.899 Other long term (current) drug therapy
CPT/HCPCS: 36415; 71046; 74176; 80053; 81001; 83690; 84484; 85025; 93005; 96361; 96365; 96375; 99285; J0696; J2270; J2405; J7030

== ENCOUNTER 2025-05-27 10:16 | Outpatient (CLI) | payer OTHER, MEDICAID ==
[~2025-05-27 10:16] MED LIST changes: +CEPH500C PO; +HYDR-4902 PO
[2025-05-27 11:20] LABS: Alanine Aminotransferase 15.0 U/L (7-40); Albumin 4.5 g/dL (3.2-4.8); Alkaline Phosphatase 67.0 U/L (46-116); Bilirubin, Direct 0.3 mg/dL (<0.3); Bilirubin, Total 0.9 mg/dL (0.2-1.0); Total Protein 6.6 g/dL (5.7-8.2)
[2025-05-27 11:33] LABS: Iron 163.0 ug/dL (50-170)
[2025-05-27 11:36] LABS: Total Iron Binding Capacity 316.0 ug/dL (250-425)
== END 2025-05-27 17:00 | disposition home or self-care (01) ==
LOC: LAB 10:16
PROVIDERS: ATTEND Internal Medicine Gastroenterology
DX: R10.9 Unspecified abdominal pain (principal)
CPT/HCPCS: 36415; 80076; 83540; 83550

== ENCOUNTER 2025-06-25 10:30 | Outpatient (CLI) | payer OTHER, MEDICAID ==
[2025-06-25 12:15] LABS: Hepatitis B Surface Antigen Negative (Negative); Hepatitis C Antibody Negative (Negative)
[2025-06-25 12:16] LABS: Hepatitis A Total Antibody Positive (Negative)
[2025-06-26 11:08] LABS: Anti-Nuclear Antibody Direct Negative (Negative)
== END 2025-06-25 17:00 | disposition home or self-care (01) ==
LOC: LAB 10:30
PROVIDERS: ATTEND Internal Medicine Gastroenterology
DX: R10.9 Unspecified abdominal pain (principal)
CPT/HCPCS: 36415; 82390; 86038; 86704; 86706; 86708; 86803; 87340

== ENCOUNTER → 2025-08-29 | Outpatient (CLI) | payer OTHER, MEDICAID ==
[2025-08-29 09:25] LABS: Hematocrit 43.0 % (36.0-46.0); Hemoglobin 14.8 g/dL (12.2-16.2); Mean Corpuscular Hemoglobin 33.5 pg (28.0-32.0); Mean Corpuscular Volume 97.1 fL (80.0-100.0); Nucleated Red Blood Cells % 0.0 %
[2025-08-29 10:57] LABS: Alanine Aminotransferase 19 U/L (7-40); Albumin 4.4 g/dL (3.2-4.8); Alkaline Phosphatase 57 U/L (46-116); Anion Gap 7 (5-15); BUN/Creatinine Ratio 16.3 (10.0-20.0); Blood Urea Nitrogen 14 mg/dL (9-23); Calcium 9.6 mg/dL (8.7-10.4); Carbon Dioxide 28 mmol/L (20-31); Chloride 108 mmol/L (98-107); Cholesterol 195 mg/dL (< 200); Glucose 90 mg/dL (74-106); HDL Cholesterol 48 mg/dL (40-59); Potassium 4.1 mmol/L (3.5-5.1); Sodium 143 mmol/L (136-145); Total Protein 6.8 g/dL (5.7-8.2); Triglycerides 186 mg/dL (< 150)
[2025-08-29 10:58] LABS: Bilirubin, Total 1.3 mg/dL (0.2-1.0)
== END | disposition home or self-care (01) ==
LOC: LAB 09:09
PROVIDERS: ATTEND Internal Medicine
DX: I11.0 Hypertensive heart disease with heart failure (principal); I50.9 Heart failure, unspecified; E78.00 Pure hypercholesterolemia, unspecified; K92.1 Melena
CPT/HCPCS: 36415; 80053; 80061; 85025